=== PATIENT | male | born 1985 | race African-American/Black ===

== ENCOUNTER 2024-02-10 14:47 | Emergency (ER) | payer OTHER ==
[~2024-02-10] VITALS: Ht 172.7 cm; Wt 150.0 kg
[2024-02-10 14:52] VITALS: O2SAT 99
[2024-02-10 16:28] LABS: DIFFERENTIAL COMMENT 1; HEMATOCRIT. 43.1 % (42.0-52.0); HEMOGLOBIN. 14.5 g/dL (14.0-18.0); MEAN CORPUSCULAR HEMOGLOBIN 29.6 pg (28.0-32.0); MEAN CORPUSCULAR HGB CONC 33.6 g/dL (31.0-37.0); MEAN PLATELET VOLUME 9.7 fl (7.4-10.4); PLATELET 180 x1000/uL (130-400); WHITE BLOOD COUNT 7.3 x1000/uL (4.5-11.0)
[2024-02-10 16:33] LABS: CALCIUM 8.6 mg/dL (8.7-10.4); CHLORIDE 105 mEq/L (98-107); POTASSIUM 3.1 mEq/L (3.5-5.1); SODIUM 141 mEq/L (136-145)
[2024-02-10 16:34] LABS: CARBON DIOXIDE 29 mEq/L (21-32)
[2024-02-10 16:39] LABS: CREATININE 0.8 mg/dL (0.6-1.3); GLUCOSE 92 mg/dL (70-105); TROPONIN I HIGH SENSITIVITY 5 ng/L (3.0-53); UREA NITROGEN BLOOD 10 mg/dL (9-23)
[2024-02-10] MEDS: ACETAMINOPHEN 325MG TABLET PO ONE (17:56)
[2024-02-10] MEDS: POTASSIUM CHLORIDE 20MEQ/PACKET PO ONE (17:56)
[2024-02-10] MEDS: KETOROLAC 30MG/ML VIAL IM ONE (17:57)
[2024-02-10] MEDS: POTASSIUM BICARB/CIT ACID 25 MEQ TABLET.EFF PO ONE (17:57)
[2024-02-10 18:43] LABS: TROPONIN I HIGH SENSITIVITY 5 ng/L (3.0-53)
[2024-02-10 18:52] LABS: PLATELET ESTIMATE NORMAL
[2024-02-10 19:12] VITALS: BP 148/92; PULSE 84; RESP 16; TEMP 37.05852; O2SAT 99
== END 2024-02-10 19:13 | disposition home or self-care (01) ==
LOC: ER 14:47
DX: R07.89 Other chest pain (principal); Z87.891 Personal history of nicotine dependence
CPT/HCPCS: 99285; 71045; 80048; 85025; 84484; 36415; 93005; 96372; J1885